=== PATIENT | female | born 1975 | race Caucasian/White ===

== ENCOUNTER → 2024-02-27 | Outpatient (CLI) | payer MEDICARE | LOC: MHCPAIN 10:10 | DX: M51.36 Other intervertebral disc degeneration, lumbar region (principal); M47.816 Spondylosis without myelopathy or radiculopathy, lumbar region | CPT/HCPCS: G0463 ==

== ENCOUNTER → 2024-05-27 | Outpatient (CLI) | payer MEDICARE | LOC: MHCPAIN 12:58 | DX: M51.37 Other intervertebral disc degeneration, lumbosacral region (principal); M51.26 Other intervertebral disc displacement, lumbar region; M47.816 Spondylosis without myelopathy or radiculopathy, lumbar region; E11.40 Type 2 diabetes mellitus with diabetic neuropathy, unspecified; Z79.84 Long term (current) use of oral hypoglycemic drugs; M35.00 Sjogren syndrome, unspecified; L40.9 Psoriasis, unspecified | CPT/HCPCS: G0463 ==

== ENCOUNTER 2024-06-19 07:35 | Outpatient (CLI) | payer MEDICARE ==
[~2024-06-19] VITALS: Ht 172.8 cm; Wt 100.0 kg
[2024-06-19] VITALS (27 sets, daily range): BP systolic 90–131; BP diastolic 53–87; PULSE 73–98; TEMP 98.2
[2024-06-19] MEDS ORDERED: GLUCOPHAGE XR500 M1 PO (08:04)
[2024-06-19] MEDS ORDERED: VYVANSE30 MG PO (08:05)
[2024-06-19] MEDS ORDERED: VYVANSE20 MG PO (08:05)
[2024-06-19] MEDS ORDERED: PRINIVIL5 MG PO (08:06)
[2024-06-19] MEDS ORDERED: LIPITOR 10MG10 MG PO (08:06)
[2024-06-19] MEDS ORDERED: ABILIFY 15MG TA15 MG PO (08:06)
[2024-06-19] MEDS ORDERED: LYRICA 50MG CAP50 MG PO (08:07)
[2024-06-19] MEDS ORDERED: VIIBRYD40 MG PO (08:07)
[2024-06-19] MEDS ORDERED: TRULICITY1.5 MG/0.5 SQ (08:08)
[2024-06-19] MEDS ORDERED: SKYRIZI PE150 MG/1 M SQ (08:08)
[2024-06-19] MEDS ORDERED: MIRAPEX 0.0.125 MG/T PO (08:08)
[2024-06-19] MEDS ORDERED: IRON TABLETS325 MG PO (08:09)
[2024-06-19] MEDS ORDERED: ZANAFLEX CAPSULE4 MG PO (08:09)
[2024-06-19] MEDS ORDERED: VITAMIND3 5000 PO (08:10)
[2024-06-19] MEDS ORDERED: VITAMINC1000TA PO (08:10)
[2024-06-19] MEDS ORDERED: VITAMIN B COMPL1 SGL PO (08:10)
[2024-06-19 08:23] LABS: BASO % 0.4 % (0.0-2.0); EOS # 0.1 K/mm3 (0.0-0.7); EOS % 0.9 % (0.0-4.0); GRAN % 68.5 % (42.2-75.2); HEMATOCRIT 37.1 % (37.0-47.0); HEMOGLOBIN 12.7 g/dl (12.5-16.0); LYMPH # 2.3 K/mm3 (1.2-3.4); LYMPH % 22.6 % (20.0-51.0); MEAN CELL VOLUME 90 fl (80.0-100.0); MEAN CORPUSCULAR HEMOGLOBIN 31 pg (27-31); MEAN CORPUSCULAR HGB CONC 34 g/dl (33.0-37.0); MEAN PLATELET VOLUME 9.8 fl (7.4-10.4); MONO # 0.7 K/mm3 (0.1-0.6); MONO % 7.1 % (1.7-9.3); PLATELET COUNT 354 K/mm3 (130-400); RED BLOOD COUNT 4.11 M/mm3 (4.10-5.30); REDCELL DISTRIBUTION WIDTH-CV 13.2 % (11.5-14.5)
[2024-06-19 08:41] LABS: INR 1.1 (0.8-3.0); PROTHROMBIN TIME 11.5 SECONDS (9.7-12.8)
[2024-06-19 08:44] LABS: PARTIAL THROMBOPLASTIN TIME 33.6 SECONDS (26.0-37.0)
--- NOTE | 2024-06-19 09:30 | NUR ---
pt to ct per bed. Pt up and onto ct table in prone position. Monitors applied and O2 on at 2l/nc.
[2024-06-19] MEDS ORDERED: fentaNYL 50 MCG/ML 2 ML VIAL IV SCH (09:40)
[2024-06-19] MEDS ORDERED: Midazolam 2 MG/2 ML VIAL IV SCH (09:40)
--- NOTE | 2024-06-19 09:55 | NUR ---
Specimen obtained and given to Dr Rivera pathologist.
--- NOTE | 2024-06-19 10:37 | NUR ---
Pt returned from procedure awake and alert, free of complaints. Water and coffee provided. VS stable. at bedside. Call light in reach. Meal tray ordered. Pt denies further needs at this time.
--- NOTE | 2024-06-19 14:20 | NUR ---
Pt has rested comfortably in bed throughout recovery period. Dr Mccoy in to speak with pt. She states pt may have bathroom privledges and if she does well, may discharge home. Pt transfers independantly to toilet in room, gait steady. Reports soreness to left lower back and requests tylenol prior to DC. Dr Mccoy notifed. Pt able to void on toilet. Urine yellow, no nguyen hematuria. She had previously attempted to void on bedpan without success. Now sitting up on edge of bed for comfort. Call light in reach. at bedside.
[2024-06-19] MEDS ORDERED: Acetaminophen 500 MG TAB PO ONE (14:30)
--- NOTE | 2024-06-19 15:40 | NUR ---
Left sided pain pt had previously reported now resolved with tylenol. She is stable on feet in room. Up to restroom again, voids large amount of clear, yellow urine. DC instructions reviewed. Pt expresses understanding. IV DC'd, site wrapped with coban. She is assisted out to 's car by wheelchair with belongings. Pt is free of complaints at discharge.
== END 2024-06-19 15:40 | disposition home or self-care (01) ==
LOC: COL.RAD 07:35
PROVIDERS: Internal Medicine Nephrology
DX: N02.B9 Other recurrent and persistent immunoglobulin A nephropathy (principal)
CPT/HCPCS: J2250; J3010

== ENCOUNTER → 2024-06-26 | Outpatient (CLI) | payer MEDICARE ==
[~2024-06-26] MED LIST: ABILIFY 15MG TA15 MG PO; GLUCOPHAGE XR500 M1 PO; IRON TABLETS325 MG PO; Iohexol 300 - 10 ML VIAL ONE; LIPITOR 10MG10 MG PO; LYRICA 50MG CAP50 MG PO; MIRAPEX 0.0.125 MG/T PO; PRINIVIL5 MG PO; SKYRIZI PE150 MG/1 M SQ; TRULICITY1.5 MG/0.5 SQ; VIIBRYD40 MG PO; VITAMIN B COMPL1 SGL PO; VITAMINC1000TA PO; VITAMIND3 5000 PO; VYVANSE20 MG PO; VYVANSE30 MG PO; ZANAFLEX CAPSULE4 MG PO
== END ==
LOC: MHCPAIN 10:51
DX: M46.1 Sacroiliitis, not elsewhere classified (principal); M54.50 Low back pain, unspecified; M53.3 Sacrococcygeal disorders, not elsewhere classified
CPT/HCPCS: G0260; J0665; J1010; Q9967